=== PATIENT | female | born 2000 | race African-American/Black ===

== ENCOUNTER 2021-12-14 01:16 | Day surgery (SDC) | payer MEDICAID ==
[2021-12-14 01:52] VITALS: BMI 21.9
[2021-12-14 02:44] LABS: Bilirubin Neg (Negative); Blood, Urine 25 (Negative); Clarity Slightly Cloudy (Clear); Glucose, Urine (Dipstick) Normal (Negative); Ketone, Urine Negative (Negative); Leukocyte 25 (Negative); Nitrite Negative (Negative); Protein, Urine (Dipstick) Negative (Neg-Trace); Specific Gravity, Urine 1.005 (1.002-1.036); Urobilinogen Normal mg/dL (Less than 2)
[2021-12-14 02:51] LABS: Bacteria/HPF Rare-Few HPF (None Seen); RBC/HPF 0-3 HPF (0-3); Squamous Epithelial 0-3 HPF (0-3); WBC/HPF 0-3 HPF (0-3)
[2021-12-14] MEDS ORDERED: hydrALAZINE 20 MG/ML VIAL SLOW IVP PRN (04:36)
== END 2021-12-14 04:55 | disposition home or self-care (01) ==
LOC: CSHLD/OP 01:16
PROVIDERS: ATTEND Obstetrics & Gynecology
DX: O26.813 Pregnancy related exhaustion and fatigue, third trimester (principal); O98.813 Other maternal infectious and parasitic diseases complicating pregnancy, third trimester; B37.3 Candidiasis of vulva and vagina; O23.593 Infection of other part of genital tract in pregnancy, third trimester; B96.89 Other specified bacterial agents as the cause of diseases classified elsewhere; O09.33 Supervision of pregnancy with insufficient antenatal care, third trimester; Z3A.38 38 weeks gestation of pregnancy; Z88.0 Allergy status to penicillin
CPT/HCPCS: 81001; 87480; 87510; 87660; 99285

== ENCOUNTER 2021-12-17 13:04 | Inpatient (IN) | payer MEDICAID ==
[2021-12-17 13:40] VITALS: BMI 21.9
[2021-12-17] MEDS ORDERED: HYDROcodone/Acetaminophen 5/325 mg Tablet PO PRN ×2 (13:41)
[2021-12-17] MEDS ORDERED: Acetaminophen 500 MG TAB PO PRN (13:41)
[2021-12-17] MEDS ORDERED: Lidocaine 1% (PF) 30 ML VIAL SC PRN (13:41)
[2021-12-17] MEDS ORDERED: Carboprost 250 MCG/ML AMP IM PRN (13:41)
[2021-12-17] MEDS: Lactated Ringer's 1,000 ML IV SCH ×3 (13:41→22:21)
[2021-12-17] MEDS ORDERED: Ibuprofen 800 MG TAB PO PRN (13:41)
[2021-12-17] MEDS ORDERED: Promethazine HCl 25 MG/ML VIAL IM PRN ×3 (13:41→18:41)
[2021-12-17] MEDS ORDERED: Ondansetron PF 4 MG/2 ML Vial IVP PRN ×3 (13:41→18:41)
[2021-12-17] MEDS ORDERED: Misoprostol 200 MCG TAB PR PRN (13:41)
[2021-12-17] MEDS ORDERED: Methylergonovine 0.2 MG/ML VIAL IM PRN ×2 (13:41→18:41)
[2021-12-17] MEDS ORDERED: Diphenoxylate HCl/Atropine Tablet PO PRN ×2 (13:41)
[2021-12-17] MEDS ORDERED: hydrALAZINE 20 MG/ML VIAL SLOW IVP PRN ×2 (13:41→18:41)
[2021-12-17] MEDS ORDERED: Butorphanol Tartrate 1 MG/ML VIAL SLOW IVP PRN (13:41)
[2021-12-17 14:01] LABS: Hemoglobin 8.9 g/dL (12.0-15.5); Mean Corpuscular HGB CONC 32.6 g/dL (32.0-36.0); Mean Corpuscular Hemoglobin 23.1 pg (27.0-33.0); Mean Corpuscular Volume 70.7 fl (81.6-98.3); Mean Platelet Volume 10.5 fl (7.4-10.4); Platelet Count 317 10x3/uL (150-450); RBC Distribution Width 17.2 % (11.5-14.5); Red Blood Cell (RBC) Count 3.86 10x6/uL (3.90-5.03); White Blood Cell (WBC) Count 9.4 10x3/uL (3.5-10.5)
[2021-12-17] MEDS ORDERED: Fentanyl 2 mcg/Bup 0.1% Cadd 100 ML ONE (14:13)
[2021-12-17 14:35] LABS: Hep B Surf Ag Non-Reactive S/CO (NonReactive); Syphilis Antibody Nonreactive (Nonreactive); Syphilis Antibody Index 0.04 S/CO (<1.00 Non-Reactive)
[2021-12-17 14:46] LABS: HBSAg Index 0.16 S/CO (0-0.99)
[2021-12-17] MEDS ORDERED: Naloxone HCl 0.4 mg/ml Vial IVP PRN ×2 (14:51)
[2021-12-17] MEDS ORDERED: Lactated Ringer's 500 ML IV PRN (14:51)
[2021-12-17] MEDS ORDERED: Hydrocerin (Eucerin) Cream 120 gm Jar TOP PRN (14:51)
[2021-12-17] MEDS ORDERED: diphenhydrAMINE 50 MG/ML VIAL IVP PRN (14:51)
[2021-12-17] MEDS ORDERED: ePHEDrine Sulfate 50 MG/10 ML VIAL SLOW IVP PRN (14:51)
[2021-12-17] MEDS ORDERED: Acetaminophen 325 MG TAB PO PRN (14:51)
[2021-12-17] MEDS ORDERED: Communication Order-Pharmacy FS SCH (15:00)
[2021-12-17] MEDS ORDERED: Fentanyl 2 mcg/Bupivacaine 0.1% Cassette 100 ML EPIDURAL SCH (15:00)
[2021-12-17 15:35] LABS: Amphetamine Not Detected (NotDetected); Barbiturates Screen Not Detected (NotDetected); Benzodiazepine Screen Not Detected (NotDetected); Cocaine Metabolite Screen Not Detected (NotDetected); Methadone Not Detected (NotDetected); Methamphetamine Not Detected (NotDetected); Opiate Screen Not Detected (NotDetected); Oxycodone Screen Not Detected (NotDetected); Phencyclidine (PCP) Not Detected (NotDetected); THC/Cannabinoid Screen Detected (NotDetected); Tricyclic Screen Not Detected (NotDetected)
[2021-12-17 16:33] LABS: SARS-CoV-2 NAA Rapid Test Not Detected (NotDetected)
[2021-12-17] MEDS: NS w/ Oxytocin 30 units 500 ML IV SCH ×2 (17:50→19:58)
[2021-12-17] MEDS ORDERED: NS w/ Oxytocin 10 units 500 ML IV SCH (18:00)
[2021-12-17 18:35] LABS: pH (Cord, venous) 7.304 (7.250-7.350)
[2021-12-17] MEDS ORDERED: Preparation H Ointment 28 GM TUBE PR PRN (18:41)
[2021-12-17] MEDS ORDERED: Bisacodyl 10 MG SUPP PR PRN (18:41)
[2021-12-17] MEDS ORDERED: Misoprostol 200 MCG TAB VAG PRN (18:41)
[2021-12-17] MEDS ORDERED: Milk Of Magnesia 30 ML UDCUP PO PRN (18:41)
[2021-12-17] MEDS ORDERED: Benzocaine-Menthol 82.5 ML CAN TOP PRN (18:41)
[2021-12-17] MEDS ORDERED: diphenhydrAMINE 25 MG CAP PO PRN (18:41)
[2021-12-17] MEDS ORDERED: NS w/ Oxytocin 30 units 500 ML IV SCH (18:45)
[2021-12-17 19:42] LABS: HIV (1/2) Antibody/Antigen Non-Reactive (NonReactive); HIV 1/2 INDEX 0.09 S/CO (<1.00)
[2021-12-17] MEDS: Docusate 100 MG CAP PO SCH (22:21)
[2021-12-17] MEDS: Ibuprofen 800 MG TAB PO SCH (22:21)
[2021-12-18] MEDS ORDERED: HYDROcodone/Acetaminophen 5/325 mg Tablet PO PRN ×2 (00:46)
[2021-12-18] MEDS: Ibuprofen 800 MG TAB PO SCH ×3 (05:25→21:25)
[2021-12-18] MEDS: Docusate 100 MG CAP PO SCH ×2 (08:25→21:25)
[2021-12-18] MEDS: Ferrous Sulfate 325 MG TAB PO SCH ×2 (08:25→16:59)
[2021-12-18 13:15] LABS: Hep C IgG Ab Non-Reactive (NonReactive); Hep C Index 0.13 S/CO (0-0.79)
[2021-12-18] MEDS ORDERED: Boostrix 0.5 ML (Tdap) VIAL IM ONE (18:41)
[2021-12-18] MEDS ORDERED: Measles/Mumps/Rubella 10 MCG/0.5 ML VIAL SC ONE (18:41)
[2021-12-18] MEDS ORDERED: Varicella virus, LIVE 0.5 ML VIAL SC ONE (18:41)
[2021-12-18 19:38] VITALS: BP 96/50
[2021-12-19] MEDS: Ibuprofen 800 MG TAB PO SCH ×2 (05:35→14:46)
[2021-12-19 07:49] VITALS: TEMP 98.6
[2021-12-19] MEDS: Ferrous Sulfate 325 MG TAB PO SCH ×2 (09:31→18:03)
[2021-12-19] MEDS: Docusate 100 MG CAP PO SCH (09:31)
== END 2021-12-19 18:50 | disposition home or self-care (01) | DRG 807 ==
LOC: CSHLD/OP 13:04 → CSHLD 13:56 → CSHPP 21:30
PROVIDERS: ADMIT Obstetrics & Gynecology; ATTEND Obstetrics & Gynecology
PROC: 10D07Z6 Extraction of Products of Conception, Vacuum, Via Natural or Artificial Opening (ICD-10-PCS; principal; 2021-12-17)
PROC: 0KQM0ZZ Repair Perineum Muscle, Open Approach (ICD-10-PCS; 2021-12-17)
PROC: 10907ZC Drainage of Amniotic Fluid, Therapeutic from Products of Conception, Via Natural or Artificial Opening (ICD-10-PCS; 2021-12-17)
PROC: 0W8NXZZ Division of Female Perineum, External Approach (ICD-10-PCS; 2021-12-17)
DX: O98.52 Other viral diseases complicating childbirth (principal); Z37.0 Single live birth; B00.9 Herpesviral infection, unspecified; Z3A.38 38 weeks gestation of pregnancy; Z20.822 Contact with and (suspected) exposure to COVID-19; Z88.0 Allergy status to penicillin; O76 Abnormality in fetal heart rate and rhythm complicating labor and delivery; O32.8XX0 Maternal care for other malpresentation of fetus, not applicable or unspecified; O69.81X0 Labor and delivery complicated by cord around neck, without compression, not applicable or unspecified; O70.1 Second degree perineal laceration during delivery
CPT/HCPCS: 36415; 51702; 80306; 82805; 85027; 86762; 86780; 86803; 86850; 86900; 86901; 87340; 87389; 99285; J2405; J2590; J7120; U0002

== ENCOUNTER 2023-08-08 07:46 | Emergency (ER) | payer OTHER ==
[2023-08-08] MEDS ORDERED: Fluconazole 100 MG TAB PO SCH (08:45)
[2023-08-08 09:01] LABS: Bilirubin Neg (Negative); Blood, Urine 10 (Negative); Glucose, Urine (Dipstick) Normal (Negative); Ketone, Urine Negative (Negative); Leukocyte Negative (Negative); Nitrite Negative (Negative); Protein, Urine (Dipstick) Negative (Neg-Trace); Urobilinogen Normal mg/dL (Less than 2)
[2023-08-08 09:10] LABS: Clarity Clear (Clear)
[2023-08-08 09:11] LABS: Bacteria/HPF Rare-Few HPF (None Seen); CAUTI Indications for Culture Dysuria,urgency,freq; RBC/HPF None Seen HPF (0-3); Squamous Epithelial 0-3 HPF (0-3); WBC/HPF None Seen HPF (0-3)
[2023-08-08 09:13] LABS: Urine Culture Reflex No No
[2023-08-09 02:15] LABS: Chlam.trachomatis by PCR,Urine Not Detected (NotDetected); GC N.gonorrhoeae PCR,UrineVOID Not Detected (NotDetected)
== END 2023-08-08 09:44 | disposition home or self-care (01) ==
LOC: CSHERS 07:46
DX: N76.0 Acute vaginitis (principal); F17.290 Nicotine dependence, other tobacco product, uncomplicated
CPT/HCPCS: 81001; 87480; 87491; 87510; 87591; 87660; 99283

== ENCOUNTER 2024-01-12 09:41 | Emergency (ER) | payer OTHER, SELFPAY | END 2024-01-12 10:43 | disposition home or self-care (01) | LOC: CSHERS 09:41 | DX: A60.9 Anogenital herpesviral infection, unspecified (principal); F17.290 Nicotine dependence, other tobacco product, uncomplicated | CPT/HCPCS: 99282 ==

== ENCOUNTER 2025-05-16 12:08 | Emergency (ER) | payer OTHER, SELFPAY | END 2025-05-16 14:21 | disposition home or self-care (01) | LOC: CSHERS 12:08 | DX: S93.402A Sprain of unspecified ligament of left ankle, initial encounter (principal); F17.290 Nicotine dependence, other tobacco product, uncomplicated; W18.42XA Slipping, tripping and stumbling without falling due to stepping into hole or opening, initial encounter | CPT/HCPCS: 99283 ==